=== PATIENT | male | born 1940 | race Caucasian/White ===

== ENCOUNTER 2016-11-23 16:43 | Inpatient (IN) | payer MEDICARE, BC ==
[~2016-11-23] VITALS: Ht 175.3 cm; Wt 95.1 kg
[~2016-11-23 16:43] MED LIST: AMLO5TAB2 PO; ASPI1TAB69 PO; LIPI20TA PO; PLAV75TA29 PO; RANI150T PO; VALS320T6 PO
[2016-11-24] MEDS ORDERED: PROPOFOL 200 MG/20 ML AMP IV ONE (09:10)
[2016-11-24] MEDS ORDERED: PHENYLEPH/NS 1000 MCG/10 ML SYR IV ONE (09:11)
[2016-11-24] MEDS ORDERED: ONDANSETRON HCL 4 MG/2 ML VIAL IV PUSH ONE (09:11)
[2016-11-24] MEDS ORDERED: NEOSTIGMINE 3 MG/3 ML SYR IV ONE (09:11)
[2016-11-24] MEDS ORDERED: LACTATED RINGER'S 1000 ML INJ 2,000 ML IV ONE (09:12)
[2016-11-24] MEDS ORDERED: SODIUM CHLORID 0.9% 500 ML INJ 500 ML IV ONE (09:12)
[2016-11-24] MEDS ORDERED: INSULIN HUMAN REGULAR 1,000 UNITS/10 ML VIAL SQ PRN (12:45)
[2016-11-24] MEDS ORDERED: CHLORHEXIDINE GLUCONATE 2 % 1 PACK (2 CLOTHS) TOPICAL PRN (12:45)
[2016-11-24] MEDS ORDERED: METOPROLOL TARTRATE 25 MG TAB PO PRN (12:45)
[2016-11-24] MEDS ORDERED: LACTATED RINGER'S 1000 ML IV PRN (12:45)
[2016-11-24] MEDS ORDERED: POVIDONE IODINE 5% (ANTISEPSIS KIT) 4 APPLICATIONS EACH NARE PRN (12:45)
[2016-11-24] MEDS ORDERED: SODIUM CHLORID 0.9% 500 ML IV PRN (12:45)
[2016-11-24] MEDS ORDERED: VITA200013 PO (12:54)
[2016-11-24 12:55] VITALS: BP 161/85; PULSE 62; RESP 16; TEMP 98.1; O2SAT 97
[2016-11-24 12:56] LABS: AUTOMATED NEUTROPHIL # 5.7 TH/MM3 (1.8-7.7); BASOPHIL # 0.1 TH/MM3 (0-0.2); BASOPHIL % 0.8 % (0.0-2.0); EOSINOPHIL # 0.1 TH/MM3 (0-0.4); EOSINOPHIL % 0.6 % (0.0-4.0); HEMATOCRIT 44.3 % (39.0-51.0); HEMO FLAGS DIFF FINAL; LYMPH % 25.2 % (9.0-44.0); LYMPHOCYTE # 2.3 TH/MM3 (1.0-4.8); MEAN CELL VOLUME 92.4 FL (80.0-100.0); MEAN CORPUSCULAR HEMOGLOBIN 32.6 PG (27.0-34.0); MEAN CORPUSCULAR HGB CONC 35.3 % (32.0-36.0); MONO % 9.8 % (0.0-8.0); NEUT % 63.6 % (16.0-70.0); PLATELET COUNT 268 TH/MM3 (150-450); RED CELL DISTRIBUTION WIDTH 12.1 % (11.6-17.2); WHITE BLOOD COUNT 8.9 TH/MM3 (4.0-11.0)
[2016-11-24 13:03] LABS: APTT (PATIENT) 25.8 SEC (24.3-30.1); PROTHROMBIN TIME - PATIENT 11.1 SEC (9.8-11.6)
[2016-11-24] MEDS ORDERED: SODIUM CHLORIDE 0.9% INJ 100 ML ONE (13:10)
[2016-11-24] MEDS ORDERED: ceFAZolin INJ 1,000 MG VIAL ONE ×2 (13:10→14:51)
[2016-11-24 13:20] LABS: POTASSIUM 3.9 MEQ/L (3.5-5.1)
[2016-11-24] MEDS ORDERED: HEPARIN SODIUM - IV 10,000 UNITS/10 ML VIAL ONE (14:50)
[2016-11-24] MEDS ORDERED: BUPIVACAINE/EPINEPHRINE 0.5% PF 30 ML VIAL ONE (14:50)
[2016-11-24] MEDS ORDERED: HEPARIN SODIUM - SQ 10,000 UNITS/ML VIAL ONE (14:50)
[2016-11-24] MEDS ORDERED: PROTAMINE SULFATE 50 MG/5 ML VIAL ONE ×2 (14:51→17:44)
[2016-11-24] MEDS ORDERED: LIDOCAINE HCL 1% 50 ML VIAL ONE (14:51)
[2016-11-24] MEDS ORDERED: FAMOTIDINE 20 MG/2 ML VIAL ONE (14:56)
[2016-11-24] MEDS ORDERED: ACETAMINOPHEN 1000 MG/100 ML VIAL IV ONE (14:56)
[2016-11-24] MEDS ORDERED: MIDAZOLAM HCL 2 MG/2 ML VIAL ONE (15:09)
[2016-11-24] MEDS ORDERED: DO NOT ADM ANY ANTICOAGULANT DRUGS PRN (18:25)
[2016-11-24] MEDS ORDERED: fentaNYL CITRATE 250 MCG/5 ML AMP ONE (18:31)
[2016-11-24] MEDS ORDERED: ASPIRIN EC 81 MG TABEC ONE (20:07)
[2016-11-24 21:00] VITALS: BP 158/91; PULSE 87; RESP 18; TEMP 98.8; O2SAT 94
[2016-11-24 21:04] VITALS: BP 158/91; PULSE 87; RESP 18; TEMP 98.8; O2SAT 94
[2016-11-24 21:19] VITALS: O2SAT 92
[2016-11-24] MEDS ORDERED: MORPHINE SULFATE 4 MG/ML INJ IV PRN (21:45)
[2016-11-24] MEDS ORDERED: MAGNESIUM SULFATE 1 GM/100 ML IV PRN (21:45)
[2016-11-24] MEDS ORDERED: POTASSIUM PHOSPHATE 21 MMOL/NS 250 ML IV PRN ×2 (21:45)
[2016-11-24] MEDS ORDERED: POTASSIUM CHLOR 20 MEQ/100 ML x 1 BAG IV PRN (21:45)
[2016-11-24] MEDS ORDERED: SODIUM CHLORIDE 0.9% FLUSH 10 ML FLUSH IV FLUSH PRN ×2 (21:45)
[2016-11-24] MEDS ORDERED: ONDANSETRON HCL 4 MG/2 ML VIAL IV PUSH PRN (21:45)
[2016-11-24] MEDS ORDERED: POTASSIUM CHLOR 20 MEQ 100 ML x 2 BAGS IV PRN (21:45)
[2016-11-24 22:00] VITALS: PULSE 85
[2016-11-24 23:00] VITALS: PULSE 84
[2016-11-25] VITALS (17 sets, daily range): BP systolic 137–157; BP diastolic 83–93; PULSE 74–99; RESP 16–18; TEMP 97.3–98.9; O2SAT 92–95
[2016-11-25] MEDS ORDERED: ASPIRIN EC 81 MG TABEC PO SCH (09:00)
--- NOTE | 2016-11-25 10:43 | EKG ---
Date Performed: 11/24/2016 Time Performed: 12:32:13 PTAGE: 76 years EKG: Sinus rhythm WITH OCCASIONAL SUPRAVENTRICULAR PREMATURE COMPLEXES BORDERLINE ECG NO PREVIOUS TRACING DOCTOR: Kat Montes Interpretating Date/Time 11/25/2016 10:42:34
[2016-11-25] MEDS ORDERED: CHOLECALCIFEROL (VIT D3) 1000 UNIT TAB PO SCH (21:00)
[2016-11-25] MEDS ORDERED: ATORVASTATIN 20 MG TAB PO SCH (21:00)
[2016-11-25] MEDS ORDERED: CLOPIDOGREL 75 MG TAB PO SCH (21:00)
[2016-11-26] MEDS ORDERED: HYDROCHLOROTHIAZIDE 25 MG TAB PO SCH (09:00)
[2016-11-26] MEDS ORDERED: amLODIPine BESYLATE 5 MG TAB PO SCH (09:00)
[2016-11-26] MEDS ORDERED: ASPIRIN EC 81 MG TABEC PO SCH (09:00)
[2016-11-26] MEDS ORDERED: VALSARTAN 160 MG TAB PO SCH (09:00)
[2016-11-26] MEDS ORDERED: FAMOTIDINE 20 MG TAB PO SCH (09:00)
--- NOTE | 2016-11-26 12:43 | MP ---
cc: BULL MCALLISTER MD, JAMES T. M.D. BUCHANAN, SANDRA L. M.D. DATE OF SURGERY: 11/24/2016 PREOPERATIVE DIAGNOSIS High-grade, possibly symptomatic left carotid stenosis. POSTOPERATIVE DIAGNOSIS High-grade, possibly symptomatic left carotid stenosis. OPERATIVE PROCEDURE Left carotid endarterectomy with bovine patch angioplasty. SURGEON Glenn Sorto MD [facility] ROSANNE Interiano ANESTHESIA General endotracheal. DESCRIPTION OF THE OPERATIVE PROCEDURE With the patient in the supine position general endotracheal anesthesia was induced, the cervical spine extended, rotated to the right, left anterior cervical region prepped with Betadine and draped in a sterile fashion. One gram of Ancef was administered intravenously and following a protocol time-out, skin and subcutaneous tissue along the anterior border of the sternocleidomastoid preemptively infiltrated with 0.5% Marcaine with epinephrine. A curvilinear incision was performed along the anterior border of the sternocleidomastoid, deepened through the platysma. The sternocleidomastoid and internal jugular vein were mobilized laterally. The common, internal, external, carotid and superior thyroid arteries were circumferentially mobilized and encircled with vessel loops, care taken to identify and protect the hypoglossal and vagus nerve. The patient was systemically heparinized with 5000 units. The superior thyroid, external and internal carotid arteries were sequentially occluded with Yasargil clips, proximal common carotid artery occluded with an angled DeBakey vascular clamp. A vertical arteriotomy was performed along the anterolateral surface of the distal common and extended well into the internal carotid lumen across a focal relatively soft atherosclerotic plaque with subintimal hemorrhage situated within the proximal internal carotid lumen producing greater than 80% stenosis. A French shunt was introduced, care taken to avoid air or ___ embolization. The plaque was cleanly and completely endarterectomized. The ___ lumen was copiously irrigated with heparinized saline. A bovine patch was secured to the endarterectomy incision with continuous 6-0 Prolene. Prior to placement of the final sutures the French shunt was removed, the arterial lumen appropriately flushed, final sutures placed and tied and pulsatile flow reestablished first into the external and secondly into the internal carotid as confirmed by Doppler signal. Heparin was reversed with 20 mg of protamine and strict hemostasis assured. The platysmal fascia was reapproximated with continuous 4-0 Monocryl, skin with continuous subcuticular 5-0 Monocryl. Steri-Strips and sterile dressing were applied. No operative complications. Instrument, needle, sponge count were correct x2. Upon awakening from anesthesia no lateralizing neurological deficits were apparent. MD LIANET Wilkerson/TLL /8:05 AM /12:13 PM
== END 2016-11-25 14:21 | disposition home or self-care (01) | DRG 39 ==
LOC: NEDA 11-24 11:46 → HCIN 11-24 20:30
PROVIDERS: ADMIT Surgery Vascular Surgery; ATTEND Surgery Vascular Surgery
PROC: 03CJ0ZZ Extirpation of Matter from Left Common Carotid Artery, Open Approach (ICD-10-PCS; 2016-11-24)
PROC: 03CL0ZZ Extirpation of Matter from Left Internal Carotid Artery, Open Approach (ICD-10-PCS; principal; 2016-11-24 15:52)
DX: I65.22 Occlusion and stenosis of left carotid artery (principal); I10 Essential (primary) hypertension; E78.00 Pure hypercholesterolemia, unspecified; Z86.73 Personal history of transient ischemic attack (TIA), and cerebral infarction without residual deficits
CPT/HCPCS: 80048; 85025; 85610; 85730; 86850; 86900; 86901; 93005; J0131; J0690; J1644; J2250; J2370; J2405; J2710; J2720; J3010; J7040; J7120